=== PATIENT | female | born 1955 | race Native Hawaiian/Other Pacific Islander ===

== ENCOUNTER 2016-12-08 05:24 | Inpatient (IN) | payer MEDICAID, OTHER ==
[~2016-12-08] VITALS: Ht 162.6 cm; Wt 68.4 kg
[2016-12-08] MEDS ORDERED: ASPI81 PO (05:31)
[2016-12-08] MEDS ORDERED: INSNOV SQ (05:31)
[2016-12-08] MEDS ORDERED: INSLAN SQ (05:31)
[2016-12-08 05:34] LABS: GLUCOSE,POINT OF CARE 156 MG/DL (70-110)
[2016-12-08] MEDS ORDERED: ACETAMINOPHEN 325 MG TABLET PO ONE (06:15)
[2016-12-08] MEDS ORDERED: SODIUM CHLORIDE 0.9% 1,000 ML IV ONE ×3 (06:15→10:00)
[2016-12-08] MEDS ORDERED: BARIUM SULFATE 0.1% SUSPENSION 450 ML BOTTLE PO ONE (06:15)
[2016-12-08 06:47] LABS: BASOPHILS % (AUTO) 0.5 % (0.0-2.0); EOSINOPHILS % (AUTO) 0.5 % (1.0-6.0); HEMATOCRIT 35.7 % (36-46); HEMOGLOBIN 12.2 g/dL (12.0-16.0); LYMPHOCYTES # (AUTO) 1.2 K/uL (1.0-4.8); LYMPHOCYTES % (AUTO) 7.7 % (22.0-44.0); MEAN CORPUSCULAR HEMOGLOBIN 30.5 pg (26.0-34.0); MEAN CORPUSCULAR HGB CONC 34.3 G/dL (31.0-37.0); MEAN CORPUSCULAR VOLUME 89 fL (80-100); MONOCYTES # (AUTO) 1.7 K/uL (0.1-1.0); MONOCYTES % (AUTO) 10.6 % (2.0-9.0); NEUTROPHILS % (AUTO) 80.7 % (40.0-70.0); PLATELET COUNT (AUTO) 290 K/uL (150-450); RED BLOOD CELL COUNT(AUTO) 4.01 MIL/uL (4.00-5.20); RED CELL DISTRIBUTION WIDTH 13.1 % (11.5-14.5); WHITE BLOOD COUNT (AUTO) 16.1 K/uL (4.5-11.0)
[2016-12-08 06:56] LABS: PROTHROMBIN TIME 10.6 SEC (9.4-11.6)
[2016-12-08 07:03] LABS: LACTIC ACID 1.3 mmol/L (0.4-2.0)
[2016-12-08 07:07] LABS: APPEARANCE,URINE CLOUDY (CLEAR); GLUCOSE, URINE (UA) NEGATIVE (NEGATIVE); KETONES,URINE NEGATIVE (NEGATIVE); LEUKOCYTE ESTERASE ,URINE TRACE (NEGATIVE); OCCULT BLOOD,URINE SMALL (NEGATIVE); PROTEIN,URINE POS 1+ (NEGATIVE)
[2016-12-08 07:07] LABS: ALANINE AMINOTRANSFERASE 20 U/L (12-78); ALBUMIN 3.8 g/dL (3.4-5.0); ANION GAP 9 mmol/L (8-16); ASPARTATE AMINOTRANSFERASE 15 U/L (15-37); BILIRUBIN,TOTAL 0.7 mg/dL (0.1-1.0); CARBON DIOXIDE 27 mmol/L (22-29); CHLORIDE 103 mmol/L (98-107); CREATININE 0.79 mg/dL (0.60-1.30); GLOMERULAR FILTR. RATE CALC > 60 mL/min (>60); POTASSIUM 4.3 mmol/L (3.5-5.1); SODIUM SERUM 139 mmol/L (136-145); TOTAL PROTEIN, SERUM 8.2 g/dL (6.4-8.2); UREA NITROGEN, BLOOD 19 mg/dL (7-18)
[2016-12-08 07:10] LABS: ADD UA MICROSCOPIC YES
[2016-12-08 07:12] LABS: RBC,URINE 0-2 /HPF (0-2); SQUAMOUS EPITHELIAL CELL,UR Few /LPF (None Seen)
[2016-12-08] MEDS ORDERED: CefTRIAXone 1 GM/DEXTROSE 50 ML IV ONE (07:30)
[2016-12-08] MEDS ORDERED: IOVERSOL 350 MG/ML 100 ML VIAL ONE (07:59)
[2016-12-08] MEDS ORDERED: ONDANSETRON HCL 4 MG/2 ML VIAL IVP PRN ×2 (10:00→21:00)
[2016-12-08] MEDS: ACETAMINOPHEN 325 MG TABLET PO PRN ×3 (11:14→20:54)
[2016-12-08] MEDS ORDERED: DEXTROSE 50%-WATER 25 GM/50 ML SYRINGE IVP PRN ×2 (13:00→22:45)
[2016-12-08 13:20] VITALS: BP 146/87
[2016-12-08] MEDS ORDERED: INFLUENZA VIRUS VACCINE QVS 2017-18 (3YR+)/PF 60 MCG/0.5 ML SYRINGE IM ONE (15:15)
[2016-12-08] MEDS ORDERED: PNEUMOCOCCAL VACCINE POLYVALENT 0.5 ML VIAL [PPSV23] IM ONE (15:15)
[2016-12-08 16:00] VITALS: BP 150/77
[2016-12-08 16:02] VITALS: BP 150/77
[2016-12-08] MEDS ORDERED: ACETAMINOPHEN 325 MG TABLET PO PRN (17:15)
[2016-12-08] MEDS: INSULIN ASPART 100 UNITS/ML SQ PRN ×2 (17:38→20:48)
[2016-12-08 20:05] VITALS: BP 142/79
[2016-12-08] MEDS ORDERED: OxyCODONE HCL/ACETAMINOPHEN 5-325 MG TABLET PO PRN ×2 (21:00)
[2016-12-08] MEDS ORDERED: 0.9% SODIUM CHLORIDE 10 ML SYRINGE IVP PRN (21:00)
[2016-12-08 21:27] LABS: GLUCOSE COMMENT 1 Received Meds; GLUCOSE,POINT OF CARE 171 MG/DL (70-110)
[2016-12-08 21:27] LABS: GLUCOSE,POINT OF CARE 158 MG/DL (70-110)
[2016-12-08] MEDS ORDERED: INSULIN ASPART 100 UNITS/ML SQ PRN (22:45)
[2016-12-08] MEDS: DOCUSATE SODIUM 100 MG CAPSULE PO SCH (23:05)
[2016-12-08] MEDS: PANTOPRAZOLE SODIUM 40 MG/VIAL IVP SCH (23:05)
[2016-12-08 23:12] VITALS: BP 154/63
[2016-12-09 05:00] VITALS: BP 148/70
[2016-12-09] MEDS: INSULIN ASPART 100 UNITS/ML SQ PRN ×4 (05:24→20:34)
[2016-12-09 06:54] LABS: ANION GAP 13 mmol/L (8-16); CALCIUM, TOTAL 8.7 mg/dL (8.8-10.5); CARBON DIOXIDE 25 mmol/L (22-29); CHLORIDE 102 mmol/L (98-107); GLOMERULAR FILTR. RATE CALC > 60 mL/min (>60); POTASSIUM 3.5 mmol/L (3.5-5.1); SODIUM SERUM 140 mmol/L (136-145); UREA NITROGEN, BLOOD 9 mg/dL (7-18)
[2016-12-09 06:57] LABS: GLUCOSE COMMENT 1 Received Meds; GLUCOSE,POINT OF CARE 188 MG/DL (70-110)
[2016-12-09 07:10] LABS: BASOPHILS % (AUTO) 0.2 % (0.0-2.0); EOSINOPHILS % (AUTO) 0.3 % (1.0-6.0); HEMATOCRIT 35.9 % (36-46); HEMOGLOBIN 12.3 g/dL (12.0-16.0); LYMPHOCYTES # (AUTO) 1.5 K/uL (1.0-4.8); LYMPHOCYTES % (AUTO) 14.8 % (22.0-44.0); MEAN CORPUSCULAR HEMOGLOBIN 30.7 pg (26.0-34.0); MEAN CORPUSCULAR HGB CONC 34.2 G/dL (31.0-37.0); MEAN CORPUSCULAR VOLUME 90 fL (80-100); MONOCYTES # (AUTO) 1.1 K/uL (0.1-1.0); MONOCYTES % (AUTO) 10.7 % (2.0-9.0); NEUTROPHILS # (AUTO) 7.4 K/uL (1.8-7.7); PLATELET COUNT (AUTO) 300 K/uL (150-450); RED CELL DISTRIBUTION WIDTH 13.2 % (11.5-14.5); WHITE BLOOD COUNT (AUTO) 10.1 K/uL (4.5-11.0)
[2016-12-09 07:29] VITALS: BP 139/73
[2016-12-09] MEDS: CefTRIAXone 1 GM/DEXTROSE 50 ML IV SCH (08:46)
[2016-12-09] MEDS: PANTOPRAZOLE SODIUM 40 MG/VIAL IVP SCH (08:47)
[2016-12-09] MEDS: DOCUSATE SODIUM 100 MG CAPSULE PO SCH ×2 (08:47→20:33)
[2016-12-09] MEDS ORDERED: SODIUM CHLORIDE 0.9% 250 ML IV ONE (08:51)
[2016-12-09 11:29] VITALS: BP 142/78
[2016-12-09 15:14] VITALS: BP 122/96
[2016-12-09] MEDS ORDERED: ASPIRIN 81 MG EC TABLET PO ONE (15:30)
[2016-12-09] MEDS: GABAPENTIN 300 MG CAPSULE PO SCH ×2 (16:00→20:33)
[2016-12-09] MEDS: LOSARTAN POTASSIUM 50 MG TABLET PO SCH (16:00)
[2016-12-09] MEDS: ATENOLOL 50 MG TABLET PO SCH (16:01)
[2016-12-09] MEDS: ASPIRIN 81 MG EC TABLET PO SCH (16:01)
[2016-12-09] MEDS: ATORVASTATIN CALCIUM 20 MG TABLET PO SCH (16:01)
[2016-12-09 19:42] VITALS: BP 115/60
[2016-12-09 20:59] LABS: GLUCOSE COMMENT 1 Received Meds; GLUCOSE,POINT OF CARE 170 MG/DL (70-110)
[2016-12-09 20:59] LABS: GLUCOSE COMMENT 1 Received Meds; GLUCOSE,POINT OF CARE 187 MG/DL (70-110)
[2016-12-09 22:35] LABS: GLUCOSE COMMENT 1 Received Meds; GLUCOSE,POINT OF CARE 160 MG/DL (70-110)
[2016-12-09 23:39] VITALS: BP 123/65
[2016-12-10 04:00] VITALS: BP 139/79
[2016-12-10 07:00] LABS: GLUCOSE,POINT OF CARE 125 MG/DL (70-110)
[2016-12-10 07:23] VITALS: BP 127/67
[2016-12-10] MEDS: PANTOPRAZOLE SODIUM 40 MG/VIAL IVP SCH (08:20)
[2016-12-10] MEDS: GABAPENTIN 300 MG CAPSULE PO SCH (08:21)
[2016-12-10] MEDS: ATORVASTATIN CALCIUM 20 MG TABLET PO SCH (08:22)
[2016-12-10] MEDS: ATENOLOL 50 MG TABLET PO SCH (08:23)
[2016-12-10] MEDS: LOSARTAN POTASSIUM 50 MG TABLET PO SCH (08:23)
[2016-12-10] MEDS: DOCUSATE SODIUM 100 MG CAPSULE PO SCH (08:24)
[2016-12-10] MEDS: ASPIRIN 81 MG EC TABLET PO SCH (08:24)
[2016-12-10] MEDS: CefTRIAXone 1 GM/DEXTROSE 50 ML IV SCH (08:31)
[2016-12-10 11:25] VITALS: BP 128/67
[2016-12-10 15:20] VITALS: BP 132/72
[2016-12-10] MEDS ORDERED: CEPH500 PO (17:43)
[2016-12-10 17:58] LABS: BASOPHILS # (AUTO) 0.04 K/uL (0.00-0.20); BASOPHILS % (AUTO) 0.5 % (0.0-2.0); EOSINOPHILS # (AUTO) 0.04 K/uL (0.00-0.70); EOSINOPHILS % (AUTO) 0.48 % (1.0-6.0); HEMATOCRIT 37.2 % (36-46); HEMOGLOBIN 12.4 g/dL (12.0-16.0); LYMPHOCYTES # (AUTO) 1.9 K/uL (1.0-4.8); LYMPHOCYTES % (AUTO) 23.3 % (22.0-44.0); MEAN CORPUSCULAR HEMOGLOBIN 29.5 pg (26.0-34.0); MEAN CORPUSCULAR HGB CONC 33.3 G/dL (31.0-37.0); MEAN CORPUSCULAR VOLUME 89 fL (80-100); MONOCYTES # (AUTO) 1.2 K/uL (0.1-1.0); MONOCYTES % (AUTO) 15.2 % (2.0-9.0); NEUTROPHILS # (AUTO) 4.8 K/uL (1.8-7.7); NEUTROPHILS % (AUTO) 60.5 % (40.0-70.0); PLATELET COUNT (AUTO) 300 K/uL (150-450); RED CELL DISTRIBUTION WIDTH 12.9 % (11.5-14.5); WHITE BLOOD COUNT (AUTO) 7.9 K/uL (4.5-11.0)
[2016-12-10] MEDS ORDERED: OXYC-38 PO (18:02)
== END 2016-12-10 18:05 | disposition home or self-care (01) | DRG 720 ==
LOC: EMS 05:25 → 6N 10:38
PROVIDERS: ADMIT Internal Medicine; ATTEND Internal Medicine
PROC: 3E0234Z Introduction of Serum, Toxoid and Vaccine into Muscle, Percutaneous Approach (ICD-10-PCS; principal; 2016-12-10)
PROC: 3E0234Z Introduction of Serum, Toxoid and Vaccine into Muscle, Percutaneous Approach (ICD-10-PCS; 2016-12-10)
DX: A41.9 Sepsis, unspecified organism (principal); N39.0 Urinary tract infection, site not specified; E11.9 Type 2 diabetes mellitus without complications; Z79.82 Long term (current) use of aspirin; Z79.4 Long term (current) use of insulin; Z23 Encounter for immunization
CPT/HCPCS: 74177; 82962; 83605; 87040; 87086; 90471; 93005; 96361; 96374; 99285; C9113; J0696; J2405; J7030; J7050